=== PATIENT | male | born 1980 | race African-American/Black ===

== ENCOUNTER 2019-09-11 13:02 | Emergency (ER) | payer OTHER | END 2019-09-11 15:45 | disposition home or self-care (01) | LOC: ED 13:02 | DX: R03.0 Elevated blood-pressure reading, without diagnosis of hypertension (principal) ==

== ENCOUNTER 2019-09-11 19:36 | Emergency (ER) | payer OTHER ==
[~2019-09-11] VITALS: Ht 185.4 cm; Wt 204.1 kg
[2019-09-11 21:01] LABS: HEMATOCRIT 37.4 % (42.0-52.0); HEMOGLOBIN 12.5 g/dl (14.0-18.0); MEAN CELL VOLUME 95.2 fl (80.0-94.0); MEAN CORPUSCULAR HGB 31.8 pg (27.0-31.0); MEAN CORPUSCULAR HGB CONC 33.4 g/dl (33.0-37.0); MEAN PLATELET VOLUME 10.8 fl (9.6-12.3); PLATELET COUNT AUTOMATED 95 10*3/uL (130-400); RED BLOOD COUNT 3.93 10*6/uL (4.50-5.90); RED CELL DISTRI WIDTH 16.1 % (0-14.5); WHITE BLOOD COUNT 14.5 10*3/uL (4.8-10.8)
[2019-09-11 21:10] LABS: ACT PARTIAL THROMBO TIME 49.2 SECONDS (20.0-32.1); INTERNATIONAL NORM RATIO 1.9 (2.0-3.5)
[2019-09-11 21:18] LABS: ALBUMIN 1.5 gm/dl (3.1-4.5); ALKALINE PHOSPHATASE 224 U/L (45-117); BUN 12 mg/dl (7-24); CHLORIDE 90 mmol/L (98-107); CREATININE 1.68 mg/dL (0.70-1.30); LIPASE 57 U/L (73-393); POTASSIUM 3.3 mmol/L (3.5-5.1); SGOT/AST 134 IU/L (3-35); SGPT/ALT 53 U/L (12-78); SODIUM 132 mmol/L (136-145); TOTAL PROTEIN 6.7 gm/dL (6.4-8.2)
[2019-09-11 21:19] LABS: BURR CELLS FEW; PLATELET SUFFICIENCY LOW (NORMAL); TOTAL CELLS COUNTED 100 #CELLS
[2019-09-11 21:21] LABS: TROPONIN I < 0.015 ng/ml (<0.045)
[2019-09-12 01:47] LABS: BILIRUBIN 3+ (NEGATIVE); BLOOD 2+ (NEGATIVE); CLARITY TURBID (CLEAR); GLUCOSE NEGATIVE (NEGATIVE); KETONE NEGATIVE (NEGATIVE); LEUKO ESTERASE 2+ (NEGATIVE); NITRITE POSITIVE (NEGATIVE)
[2019-09-12 01:50] LABS: COLOR BROWN (YELLOW)
[2019-09-12 01:56] LABS: BACTERIA 2+; TRIP PHOS CRYSTALS 1+; WBC TNTC wbc/hpf (0-5)
== END 2019-09-12 02:20 | disposition short-term general hospital (02) ==
LOC: ED 19:36
PROVIDERS: Emergency Medicine Emergency Medical Services
DX: A41.9 Sepsis, unspecified organism (principal); K72.90 Hepatic failure, unspecified without coma; K74.60 Unspecified cirrhosis of liver; L30.9 Dermatitis, unspecified; E83.42 Hypomagnesemia; F10.20 Alcohol dependence, uncomplicated; I10 Essential (primary) hypertension; R06.02 Shortness of breath; Y90.9 Presence of alcohol in blood, level not specified